=== PATIENT | male | born 1970 | race Caucasian/White ===

== ENCOUNTER 2025-02-08 08:31 | Outpatient (CLI) | payer SELFPAY ==
--- NOTE | 2025-02-08 09:47 | RADIOLOGY REPORT ---
CLINICAL INFORMATION: Low-back pain with radiculopathy. TECHNIQUE: Multisequence multiplanar MRI images of the lumbar spine were obtained without contrast. COMPARISON: None INTERPRETATION: Vertebral body alignment is within normal limits. Vertebral body heights are mainta ined. Posterior elements are intact. No focal suspicious marrow signal abnormality. Visualized sp inal cord and cauda equina are within normal limits. The conus medullaris is appropriate in signal a t the T12-L1 level. Paraspinal soft tissues are unremarkable. L1-L2: Disc desiccation. No significant spinal canal or neural foraminal stenosis. L2-L3: Disc desiccation. There is a mild degree of congenital spinal canal narrowing with superimpos ed mild epidural lipomatosis. Minimal disc bulge with partial effacement of the lateral recesses. Fac et hypertrophy with [id number] bilateral neural foraminal stenoses. L3-L4: Disc desiccation. Minimal disc bulge mildly flattening the ventral aspect of the thecal sac. Mild congenital spinal canal narrowing and superimposed epidural lipomatosis. Facet hypertrophy with moderate bilateral neural foraminal stenoses. Small to moderate right facet joint effusion. L4-L5: Disc desiccation. Moderate disc space narrowing. Diffuse disc bulge mildly indenting the vent ral aspect of the thecal sac and partially effacing the lateral recesses. No significant spinal canal stenosis. Facet hypertrophy with severe left moderate right neural foraminal stenoses. L5-S1: Disc desiccation. No significant spinal canal stenosis. Facet hypertrophy with mild bilateral neural foraminal stenoses, right greater than left. IMPRESSION: 1. Degenerative disc disease and facet disease in the lumbar spine with subarticular and neural fora fer stenoses as detailed above. 2. The mild spinal canal stenoses at L2-L3 and L3-L4 described above are primarily due to congenital spinal canal narrowing and mild epidural lipomatosis. 3. Additional findings as detailed above.
== END 2025-02-08 23:59 | disposition home or self-care (01) ==
LOC: MRI02 08:31
PROVIDERS: ATTEND Family Medicine Sports Medicine
DX: M51.16 Intervertebral disc disorders with radiculopathy, lumbar region (principal); M54.50 Low back pain, unspecified; M77.9 Enthesopathy, unspecified; M48.07 Spinal stenosis, lumbosacral region; M47.817 Spondylosis without myelopathy or radiculopathy, lumbosacral region
CPT/HCPCS: 72148